=== PATIENT | male | born 1975 | race Caucasian/White ===

== ENCOUNTER → 2018-09-05 | Day surgery (SDC) | payer BC | LOC: SDCO 14:03 | DX: R19.7 Diarrhea, unspecified (principal); K57.30 Diverticulosis of large intestine without perforation or abscess without bleeding; K64.1 Second degree hemorrhoids; D12.5 Benign neoplasm of sigmoid colon; K21.0 Gastro-esophageal reflux disease with esophagitis; K44.9 Diaphragmatic hernia without obstruction or gangrene | CPT/HCPCS: J2250; J2405; J3010; J7030 ==

== ENCOUNTER 2020-04-29 22:35 | Observation (INO) | payer BC ==
[~2020-04-29] VITALS: Ht 177.8 cm; Wt 60.1 kg
[~2020-04-29 22:35] MED LIST: NAPROSYN25 MG/ML; OMNICEF 300MG300 MG PO; ULTRAM 50MG TAB50 MG PO; ZITHROMAX 250M250 MG PO
--- NOTE | 2020-04-29 23:40 | NUR ---
PT ARRIVES TO FLOOR WITH SPOUSE FROM ED VIA AMBULATORY STATUS. IS ALERT AND ORIENTED X4. SL TO LEFT FOREARM.
--- NOTE | 2020-04-29 23:47 | NUR ---
DR DORSEY NOTIFIED OF PTS ARRIVAL.
[2020-04-30] VITALS (11 sets, daily range): BP systolic 95–130; BP diastolic 56–85; PULSE 63–88; TEMP 98–98.7
--- NOTE | 2020-04-30 01:22 | NUR ---
MEDICATED WITH MORPHINE 2MG IVP FOR PAIN TO RIGHT ABD 5/10. CONSENT SIGNED PREVIOUS TO MORPHINE DOSE. IVF INFUSING TO LEFT FOREARM WITHOUT REDNESS OR SWELLING.
--- NOTE | 2020-04-30 05:32 | NUR ---
Pt awake, having pain 5/10 to right abd. Medicated with Morphine 2mg IVP at this time.
--- NOTE | 2020-04-30 07:23 | NUR ---
Patient down to OR by bed. Alert and oriented x 3. Spouse at bedside. Denies further needs at this tie.
--- NOTE | 2020-04-30 09:30 | NUR ---
Patient up from OR. Drowsy but arouses to voice and touch. Lap sites x 3 with bandaids are CDI. States some nausea, denies need for additional medication. Denies pain at this time. Post op VSS, Post op fluids infusing per orders. SCDs to ble. Denies further needs at this time.
--- NOTE | 2020-04-30 11:50 | NUR ---
Patient continues doing well, states pain 4/10 to abdomen, states aching. Denies need for pain medications at this time.
--- NOTE | 2020-04-30 12:53 | NUR ---
Patient continues having some nausea, not interested in lunch at this time, states this happened last time he had anesthesia.
--- NOTE | 2020-04-30 13:22 | NUR ---
Patient up ambulating in antoine with SBA, denies further needs at this time.
--- NOTE | 2020-04-30 16:27 | NUR ---
SW met with patient in room. Plan is to return home: has son Jeevan as EMR contact and DTR Harika . Denies having a DPOA. PCP is Orin Ruano at [place]. RX obtained at [facility] without concerns. Declines homehealth care services. Client reports that his son may transport home. Declines the need for PT OT or SP supports. Educated on resources, will continue to follow for needs, if they arise.
--- NOTE | 2020-04-30 18:10 | NUR ---
Discharge education provided to patient, educated on when to call provider. Educated on signs and symptoms of infection. All questions answered. INT discontinued, catheter tip intact. Denies further needs at this time. Patient ambulated out with surgical staff and family.
== END 2020-04-30 18:10 | disposition home or self-care (01) ==
LOC: SURG 22:35
PROVIDERS: ADMIT Surgery
DX: K35.80 Unspecified acute appendicitis (principal); Z87.891 Personal history of nicotine dependence
CPT/HCPCS: G0378; J0690; J1100; J1885; J2270; J2405; J2543; J2704; J3010; J7120